=== PATIENT | male | born 1980 | race Hispanic/Latino ===

== ENCOUNTER 2018-01-02 13:48 | Outpatient (CLI) | payer OTHER | END 2018-01-02 13:49 | disposition home or self-care (01) | LOC: BICRAD 13:48 | DX: M54.5 Low back pain (principal); G89.29 Other chronic pain; M47.897 Other spondylosis, lumbosacral region; M43.17 Spondylolisthesis, lumbosacral region | CPT/HCPCS: 72110 ==

== ENCOUNTER → 2018-01-30 | Outpatient (CLI) | payer OTHER | LOC: BICRAD 10:00 | PROVIDERS: ATTEND Internal Medicine | DX: M25.571 Pain in right ankle and joints of right foot (principal); M25.572 Pain in left ankle and joints of left foot; M25.561 Pain in right knee; M25.562 Pain in left knee; M25.541 Pain in joints of right hand; M25.542 Pain in joints of left hand; M53.3 Sacrococcygeal disorders, not elsewhere classified | CPT/HCPCS: 72202 ==

== ENCOUNTER 2019-05-08 11:59 | Outpatient (CLI) | payer BC ==
--- NOTE | 2019-05-08 12:19 | RAD ---
Exam: XR Knee Rt 3 View HISTORY: Joint pain right knee. Patient injured right knee approximately one and a half months ago. Pain in re gion of patella pain. COMPARISON: None FINDINGS: No acute fracture, dislocation, or other acute osseous abnormality is identified. IMPRESSION: No acute osseous abnormality is identified.
--- NOTE | 2019-05-08 13:20 | RAD ---
CHEST PA AND LATERAL: HISTORY: Chest wall pain. FINDINGS: Heart size is normal. There is an approximately 1 cm diameter nodular density seen in the inferolate ral aspect of the right lung, possibly the lateral right middle lobe. Further evaluation with chest CT scan is recommended. Heart size is normal. The left lung is clear. This is a new nodule when co mpared to a prior 04/01/2010 CT. IMPRESSION: A 1 cm diameter nodule in the inferolateral right lung. Followup chest CT scan is recommended. CODE T
== END 2019-05-08 12:00 | disposition home or self-care (01) ==
LOC: BICRAD 11:59
PROVIDERS: ATTEND Internal Medicine Addiction Medicine
DX: R07.89 Other chest pain (principal); M25.561 Pain in right knee; R91.1 Solitary pulmonary nodule
CPT/HCPCS: 71046

== ENCOUNTER 2019-07-17 13:03 | Outpatient (CLI) | payer BC ==
--- NOTE | 2019-07-17 15:10 | CT ---
CT OF CHEST PERFORMED WITH INTRAVENOUS CONTRAST ENHANCEMENT: HISTORY: Chest wall pain for the past 2-3 months. Pulmonary nodule noted on recent chest x-ray. COMPARISON: Chest x-ray examination of 05/08/2019. FINDINGS: A partially calcified pulmonary nodule is seen within the right middle lobe. It measures 9-10 mm. I t has dense central calcification suggestive of a granuloma. No other pulmonary nodules are present. There is no significant mediastinal or hilar lymphadenopathy. The thoracic spine is normal in appearance. I do not see any old or new rib fractures. IMPRESSION: Evidence of old granulomatous disease with some calcified subcarinal nodes and a partially calcified right middle lobe pulmonary nodule. No acute changes. POS: OFF
[2019-07-17] MEDS ORDERED: ISOVUE-370 76%-LOCM 1 ML ONE (16:34)
== END 2019-07-17 13:04 | disposition home or self-care (01) ==
LOC: BICCT 13:03
DX: R07.89 Other chest pain (principal); J98.4 Other disorders of lung
CPT/HCPCS: 71260

== ENCOUNTER 2019-10-26 12:53 | Outpatient (CLI) | payer BC ==
--- NOTE | 2019-10-26 14:46 | RAD ---
PA AND LATERAL CHEST: Date: 10/26/19 HISTORY: Dyspnea. COMPARISON: 05/08/19. FINDINGS: Heart size and mediastinum are within normal limits. Lungs are clear of any infiltrative process. Kvng nt area of nodularity in the right lung base consistent with the previously noted calcified granuloma is demonstrated. No acute process demonstrated. IMPRESSION: No active intrathoracic disease. Stable chest. POS: [facility]
== END 2019-10-26 12:54 | disposition home or self-care (01) ==
LOC: RAD 12:53
PROVIDERS: ATTEND Internal Medicine Pulmonary Disease
DX: R06.00 Dyspnea, unspecified (principal)
CPT/HCPCS: 71046

== ENCOUNTER 2020-12-22 09:10 | Outpatient (CLI) | payer OTHER ==
--- NOTE | 2020-12-22 09:51 | RAD ---
EXAM: Chest PA and lateral: HISTORY: Dyspnea. COMPARISON: 05/08/2019, 10/26/2019 FINDINGS: Heart: Normal cardiac silhouette Aorta: Unremarkable Pulmonary vessels: Normal Costophrenic angles: Costophrenic angles are clear. Lungs: No consolidation or masses. Stable calcified granuloma in the right lung. Pneumothorax: No pneumothorax Osseous structures: No osseous abnormalities IMPRESSION: No acute cardiopulmonary process.
== END 2020-12-22 09:11 | disposition home or self-care (01) ==
LOC: BICRAD 09:10
PROVIDERS: ATTEND Internal Medicine Pulmonary Disease
DX: R06.00 Dyspnea, unspecified (principal)
CPT/HCPCS: 71046

== ENCOUNTER 2022-05-02 10:36 | Outpatient (CLI) | payer OTHER | END 2022-05-02 10:37 | disposition home or self-care (01) | LOC: BICRAD 10:36 | PROVIDERS: ATTEND Nurse Practitioner Acute Care | DX: S23.3XXD Sprain of ligaments of thoracic spine, subsequent encounter (principal) | CPT/HCPCS: 72072 ==

== ENCOUNTER 2024-02-13 08:59 | Outpatient (CLI) | payer BC | END 2024-02-13 09:00 | disposition home or self-care (01) | LOC: MRI 08:59 → BICMRI 09:00 | PROVIDERS: ATTEND Specialist/Technologist Speech-Language Assistant | DX: M54.16 Radiculopathy, lumbar region (principal); M25.552 Pain in left hip; M43.17 Spondylolisthesis, lumbosacral region; M48.061 Spinal stenosis, lumbar region without neurogenic claudication; S76.012A Strain of muscle, fascia and tendon of left hip, initial encounter; M76.02 Gluteal tendinitis, left hip; S73.102A Unspecified sprain of left hip, initial encounter | CPT/HCPCS: 72148 ==